=== PATIENT | male | born 1960 | race Caucasian/White ===

== ENCOUNTER 2021-12-18 15:03 | Emergency (ER) | payer BC, OTHER ==
[2021-12-18 15:51] LABS: ANION GAP 12.1 meq/L (7-15); CHLORIDE,CL 99 mmol/L (98-107); SODIUM,NA 138 mmol/L (136-145)
[2021-12-18 15:59] LABS: RESPIRATORY SYNCYTIAL VIR NAA NEGATIVE (NEGATIVE)
[2021-12-18 16:03] LABS: CORONAVIRUS COVID-19 NAA POSITIVE (NEGATIVE)
[2021-12-18] MEDS ORDERED: Ketorolac 60 MG/2 ML SDV IM ONE (16:41)
[2021-12-18] MEDS ORDERED: Acetaminophen 325 MG Tab PO ONE (16:43)
[2021-12-18] MEDS ORDERED: Iopamidol 755 Mg/ML 100 ML Bottle IVPUSH STA (17:22)
[2021-12-18] MEDS ORDERED: Ketorolac 60 MG/2 ML SDV ONE (18:48)
== END 2021-12-18 19:00 | disposition home or self-care (01) ==
LOC: LL.ED 15:03
DX: U07.1 COVID-19 (principal); E78.00 Pure hypercholesterolemia, unspecified; I10 Essential (primary) hypertension; Z79.82 Long term (current) use of aspirin; Z79.899 Other long term (current) drug therapy
CPT/HCPCS: 0241U; 36415; 71046; 71275; 80053; 85025; 85379; 96372; 99285-25; A9270-GY; J1885; Q9967